=== PATIENT | female | born 1985 | race Caucasian/White ===

== ENCOUNTER → 2016-12-27 | Outpatient (CLI) | payer BC ==
[~2016-12-27] MED LIST: CLARITIN DPS10 MG PO; COLACE-DPS100 MG PO; MOTRIN-DPS800 MG PO; NEXIUM40 MG PO; NIPPLECREAM TP; PERCOCET 5-3251 EACH PO; PRENATAL VITAM1 EAC6 PO
== END | disposition home or self-care (01) ==
LOC: EDT 09:27
DX: O24.419 Gestational diabetes mellitus in pregnancy, unspecified control (principal); Z71.3 Dietary counseling and surveillance

== ENCOUNTER 2017-03-18 02:25 | Inpatient (IN) | payer BC ==
[~2017-03-18] VITALS: Ht 152.4 cm; Wt 86.6 kg
--- NOTE | ~2017-03-18 | OR ---
ADMIT: 03/18/2017 RM/LOC: 222 [facility] MR#: [id number] [id number] [facility] [address] [place], [place] [address] [place] [place] [address] Operative/Delivery Room Report SEX: F AGE: 32 : 1985 SURGERY DATE: 03/19/2017 SURGEON: Lita Arce MD PREOPERATIVE DIAGNOSES: 1. Intrauterine at 40 weeks' gestation. 2. Arrest of dilation. 3. Non-reassuring heart tones. POSTOPERATIVE DIAGNOSES: 1. Intrauterine at 40 weeks' gestation. 2. Arrest of dilation. 3. Non-reassuring heart tones. PROCEDURE: Low transverse section. ANESTHESIA: Spinal. COMPLICATIONS: None. ESTIMATED BLOOD LOSS: 500 mL. FLUIDS: Crystalloid. INDICATIONS: This is a 32-year-old female, 2, para 0-0-1-0, who [facility] with an intrauterine at 39 and 6/7 weeks' gestation with spontaneous rupture of membranes at term. Her was complicated by gestational diabetes, which was controlled with diet and obesity. She did require Pitocin augmentation. She did progress to be 4 cm dilated. At which time, she did receive an epidural for pain control. She did dilate to be 6 cm. At which time, her uterine contractions were adequate, and she remained 6 cm for over 2 hours. Additionally, heart tones would have intermittent decelerations to the 60s with intermittent late deceleration. At this time, the decision was made to proceed with a section secondary to arrest of dilation and nonreassuring heart tones. The risks, benefits, and alternatives to a section were discussed with the patient and she agreed to proceed. FINDINGS: Normal maternal uterus, tubes, and ovaries. There was a small 2 cm pedunculated fibroid at the fundus on the posterior aspect of the uterus. Female at 0021 hours weighing 7 pounds 4.5 ounces with scores of 8 at 1 minute, 9 at 5 minutes and cord pH of 7.17. DESCRIPTION OF PROCEDURE: The patient was properly identified. Informed consent was obtained. She was then taken to the operating room where her epidural catheter was removed by the anesthesiologist and a spinal was placed. She was then placed in the dorsal supine position with a leftward tilt and prepped and draped in the usual sterile fashion. After adequate spinal anesthesia was established, a Pfannenstiel skin incision was made with a ADMIT: 03/18/2017 RM/LOC: 222 [facility] MR#: [id number] [address] [address] [facility] [place] [address] Operative/Delivery Room Report SEX: F AGE: 32 : 1985 scalpel. This was carried through to the underlying layer of fascia. The fascia was incised in the midline, and the incision was extended laterally using the Loaiza scissors. The superior aspect of the fascia was grasped with Harsh clamps, elevated, and underlying rectus muscles were dissected off. Attention was then turned to the inferior aspect of the fascia. In a similar manner, it was grasped with Harsh clamps, elevated, and the underlying rectus muscles were dissected off. The rectus muscles were in the midline. The peritoneum was identified and entered bluntly. The peritoneal incision was then extended with the stretch maneuver. The bladder blade was placed. The vesicouterine peritoneum was identified, grasped with pickups, and entered sharply with the Metzenbaum scissors. The incision was extended laterally and a bladder flap was created digitally. The bladder blade was then replaced, and the lower uterine segment was incised in a transverse fashion with a scalpel. The uterine incision was extended with a stretch maneuver. The bladder blade was removed, and the infant's vertex was delivered without any difficulty followed by the anterior and posterior shoulders and the remainder of the . The infant did have spontaneous cry and movement of all 4 extremities. The cord was clamped x2 and cut, and the was taken to the warmer where nursing personnel were in attendance. Twenty units of Pitocin were infused with IV fluids to help firm the uterus. Cord blood and cord pH were obtained. The placenta delivered with help from traction and uterine massage. The uterus was exteriorized and cleared of all clot and debris. The uterine incision was then repaired with 0 Vicryl in a running, locked fashion. I did place an imbricating second layer stitch of 0 Vicryl on the left half of the incision as well as two [id number] sutures to obtain excellent hemostasis. The uterus was noted to have poor tone at this time. Methergine 0.2 mg was given IM x1, and we did have nursing staff place 800 mcg of misoprostol rectally. The uterus was returned to the abdomen. The gutters were cleared of all clot and debris. The uterine incision was reinspected and noted to be hemostatic. The posterior aspect of the rectus fascia and the rectus muscles were made hemostatic with use of electrocautery. The rectus fascia was reapproximated with 0 Vicryl in a running nonlocking fashion. The subcutaneous tissues were made hemostatic with use of electrocautery. They were reapproximated using two oh plain subcuticular kory, and Steri-Strips were applied. The patient tolerated the procedure well. Sponge, lap, needle, and instrument counts were correct. She was taken to recover in her Labor and Delivery suite with her infant. Lita Arce MD/ miguelina JOB #: [id number] CC: Xiao Dinh, Attending Physician Xiao Dinh, Family Physician
--- NOTE | 2017-03-21 12:56 | HP ---
ADMIT: 03/18/2017 RM/LOC: 222 [facility] [place] MR#: [id number] [facility] [address] [place], [place] [address] [place] [address] History and Physical SEX: F AGE: 32 : 1985 Added job [id number] 03/18/2017 1254 njv DATE OF SERVICE: CHIEF COMPLAINT: Leakage of fluid. HISTORY OF PRESENT ILLNESS: Patient is a 32-year-old, G2, P0-0-1-0, with intrauterine at 39 weeks 6 days gestation who presents to Labor and Delivery with complaints of loss of fluid. She is not having any uterine contractions at this time of presentation. The patient was admitted for premature rupture of membranes. PAST MEDICAL HISTORY: Gestational diabetes, diet controlled; acid reflux. PAST SURGICAL HISTORY: Dilation and curettage, February 2016. Knee arthroscopy for right meniscal tear in 2008. MEDICATIONS: Omeprazole 20 mg daily. ALLERGIES: KEFLEX. FAMILY HISTORY: Breast cancer, maternal grandmother; hypercholesterolemia, mother; diabetes mellitus, maternal grandfather; hypertension in mother. SOCIAL HISTORY: The patient does not smoke. Uses alcohol occasionally, but not during . No drug use. 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 She is to Adán, he is automotive tech at [employer]. REVIEW OF SYSTEMS: Significant for leakage of fluid. Denies vaginal bleeding or discharge. No abdominal pain, vision changes, or edema. PHYSICAL EXAMINATION: VITAL SIGNS: Blood pressure 137/95, pulse 90, and saturating 99% on room air. GENERAL: Well developed, well nourished, no acute distress. Alert and oriented x3. HEENT: Head normocephalic, atraumatic. Pupils equal, round, reactive to light and accommodation. Extraocular muscles intact. NECK: Thyroid not palpable. HEART: Regular rate and rhythm. LUNGS: Clear to auscultation bilaterally. ABDOMEN: Gravid, soft, nontender. EXTREMITIES: Trace edema in bilateral lower extremities to ankles. NEUROLOGIC: Grossly intact. No focal deficits. 2+ DTRs noted bilaterally. Sterile vaginal exam by the nurse revealed cervix to be 1 cm dilated, 40% effaced, and fetus at -2 station in vertex presentation. heart tones baseline 130s, moderate variability, positive accelerations. No decelerations. Category 1 heart tracing. Tocometry showed contractions q.2-4 minutes. OBSTETRICAL LABORATORY DATA: GBS positive. Abnormal 3 hour glucose tolerance ADMIT: 03/18/2017 RM/LOC: 222 [facility] [place] MR#: [id number] [facility] [address] [place] [id number] [place] [address] History and Physical SEX: F AGE: 32 : 1985 test. Blood type B positive. Chlamydia and gonorrhea negative. HIV negative. RPR nonreactive. Rubella negative. Hepatitis B negative. ASSESSMENT: 1. Patient is a 32-year-old, 2, para 0-0-1-0, with intrauterine at 39 weeks 6 days who presents to Labor and delivery with premature rupture of membranes. 2. Gestational diabetes mellitus, diet controlled. Plan to initiate diabetic labor protocol once in active labor. 3. Group B Streptococcus positive. Penicillin during active labor. PLAN: The patient admitted and started on Pitocin for augmentation. We will rupture membranes when cervix starting to dilate. Fetus is vertex and overall reassuring. The patient is group B strep positive, antibiotics are going. Will need MMR prior to discharge due to rubella nonimmune. Continue current labor course, expect vaginal delivery. James Malik MD Resident / Xiao Dinh MD / modl JOB #: [id number] CC: Xiao Dinh, Attending Physician Xiao Dinh, Family Physician Added job [id number] 03/18/2017 1254 njv
[2017-03-22] MEDS ORDERED: MOTRIN-DPS800 MG PO (11:09)
[2017-03-22] MEDS ORDERED: NEXIUM40 MG PO (11:09)
[2017-03-22] MEDS ORDERED: COLACE-DPS100 MG PO (11:09)
[2017-03-22] MEDS ORDERED: PERCOCET 5-3251 EACH PO (11:09)
[2017-03-22] MEDS ORDERED: PRENATAL VITAM1 EAC6 PO (11:09)
[2017-03-22] MEDS ORDERED: NIPPLECREAM TP (11:10)
[2017-03-22] MEDS ORDERED: CLARITIN DPS10 MG PO (11:10)
== END 2017-03-21 16:45 | disposition home or self-care (01) | DRG 766 ==
LOC: 2LDRP 02:25 → BC 02:25 → 2LDRP 03:13 → BC 03-19 08:00 → 2LDRP 03-21 16:45
PROVIDERS: ADMIT Obstetrics & Gynecology
PROC: 3E0234Z Introduction of Serum, Toxoid and Vaccine into Muscle, Percutaneous Approach (ICD-10-PCS; principal; 2017-03-19)
PROC: 10D00Z1 Extraction of Products of Conception, Low, Open Approach (ICD-10-PCS; principal; 2017-03-19)
DX: O42.02 Full-term premature rupture of membranes, onset of labor within 24 hours of rupture (principal); O24.420 Gestational diabetes mellitus in childbirth, diet controlled; D25.9 Leiomyoma of uterus, unspecified; O76 Abnormality in fetal heart rate and rhythm complicating labor and delivery; O62.0 Primary inadequate contractions; O99.824 Streptococcus B carrier state complicating childbirth; O99.62 Diseases of the digestive system complicating childbirth; K21.9 Gastro-esophageal reflux disease without esophagitis; O34.13 Maternal care for benign tumor of corpus uteri, third trimester; O75.89 Other specified complications of labor and delivery; Z23 Encounter for immunization; Z3A.39 39 weeks gestation of pregnancy; Z37.0 Single live birth